=== PATIENT | male | born 1950 | race Caucasian/White ===

== ENCOUNTER → 2023-09-27 12:39 | Outpatient (REF) | payer MEDICARE, BC, SELFPAY ==
[2023-09-27 13:39] LABS: % Basophils 0.1 % (0-2); % Immature Granulocytes 0.6 % (0-0.5); % Lymphocytes 9.7 % (20.5-51.1); % Monocytes 0.9 % (1.7-9.3); % Neutrophils 88.7 % (42.2-75.2); Absolute Immature Granulocytes 0.1 10^3/uL (0-0.05); Absolute Lymphocytes 1.2 10^3/uL (1.2-3.4); Absolute Monocytes 0.1 10^3/uL (0.1-0.6); Hematocrit 38.1 % (39.0-52.0); Hemoglobin 13.3 g/dL (13.0-18.0); Mean Corp Hgb Conc. 34.9 g/dL (33.0-37.0); Mean Corpuscular Hgb 31.7 pg (27.0-31.0); Mean Corpuscular Volume 90.9 fL (80.0-94.0); Mean Platelet Volume 10.5 fL (7.4-10.4); Nucleated Red Blood Cells % 0 % (-); Platelet Count 246 10^3/uL (130-400); Red Blood Cell Count 4.19 10^6/uL (4.70-6.10); Red Cell Dist. Width 13.2 % (11.5-14.5); White Blood Cell Count 12.4 10^3/uL (4.8-10.8)
[2023-09-27 13:42] LABS: INR 1.53; PT 18.2 Sec (11.4-14.6)
[2023-09-27 13:53] LABS: ALT (SGPT) 16 U/L (0-50); AST (SGOT) 31 U/L (17-59); Albumin 4.4 g/dl (3.5-5.0); Alkaline Phosphatase 94 U/L (38-126); Blood Urea Nitrogen 15 mg/dl (9-20); Calcium 9.6 mg/dl (8.4-10.2); Carbon Dioxide 27 mmol/L (22-30); Chloride 102 mmol/L (98-107); Glucose 132 mg/dl (70-99); Magnesium 1.9 mg/dl (1.6-2.3); Potassium 4.4 mmol/L (3.5-5.1); Sodium 135 mmol/L (135-145); Total Bilirubin 0.7 mg/dl (0.2-1.3); Total Protein 7.6 g/dl (6.3-8.2); eGFR > 60.00
== END ==
LOC: SDSPAT 12:39
PROVIDERS: ATTENDING PHYSICIAN Internal Medicine Cardiovascular Disease; FAMILY PHYSICIAN Family Medicine; OTHER PHYSICIAN Internal Medicine Cardiovascular Disease
DX: Z01.818 Encounter for other preprocedural examination (principal); I48.91 Unspecified atrial fibrillation
CPT/HCPCS: 36415; 75572; 80053; 83735; 85025; 85610; 86850; 86900; 86901; 93005; Q9967

== ENCOUNTER → 2023-09-29 10:57 | Outpatient (REF) | payer MEDICARE, BC, SELFPAY | LOC: RAD 10:57 | PROVIDERS: ATTENDING PHYSICIAN Physician Assistant Medical; FAMILY PHYSICIAN Family Medicine; OTHER PHYSICIAN Internal Medicine Cardiovascular Disease | DX: Z01.818 Encounter for other preprocedural examination (principal); R09.89 Other specified symptoms and signs involving the circulatory and respiratory systems | CPT/HCPCS: 93880 ==

== ENCOUNTER 2023-10-12 05:54 | Day surgery (SDC) | payer MEDICARE, BC, SELFPAY ==
[2023-09-27 12:59] VITALS: BMI 24.6
[2023-10-12] VITALS (13 sets, daily range): BP systolic 123–164; BP diastolic 66–90
[2023-10-12 08:58] LABS: ACT-LR - POC 250 Seconds (116-155)
[2023-10-12 09:15] LABS: ACT-LR - POC 313 Seconds (116-155)
[2023-10-12 09:47] LABS: ACT-LR - POC 348 Seconds (116-155)
[2023-10-12 10:39] LABS: ACT-LR - POC 152 Seconds (116-155)
--- NOTE | 2023-10-12 11:09 | ITS.CL.ABL ---
Servicer - Ablation
Ablation
Procedure Report:
Primary Loading Unit Tool Setter: Lc Martin MD
Procedure Date: 10/12/2023
Patient History:
Patient is a pleasant 73-year-old male with a past medical history significant for hypertension, PAD, tobacco use disorder, moderate aortic insufficiency, depression, abdominal aortic aneurysm, and symptomatic persistent atrial fibrillation.
Indication:
Symptomatic persistent atrial fibrillation
Arrhythmia Specific History:
Prior Medical Therapies for Rate and Rhythm Control:
X Beta-risa
[ ] Calcium channel-risa
[ ] Amiodarone
[ ] Dronederone
[ ] Sotalol
[ ] Flecainide
[ ] Dofetilide
[ ] Options limited by bradycardia
[ ] Options limited by comorbid renal disease
Prior Procedural Therapies for AF/AFL:
X Cardioversion
[ ] Pulmonary Vein Isolation
[ ] Posterior Wall Isolation
[ ] Additional lines (Specify)
[ ] Surgical Colby-MAZE or PVI (Specify)
Procedure Performed:
X AF ablation procedure (35352) -- includes LA/CS pacing, trans-septal, 3D mapping, + ICE
[ ] +IV drug (55944)
[ ] +Other Arrhythmia (56197)
[ ] +Other AF Line/ablation (23764)
Risks and expected recovery has been explained in detail. Alternative options have been explored, and in a shared-decision making fashion we have decided that this was the most appropriate procedure.
Method
NPO status confirmed. Grounding pad applied. Defibrillator pads applied. Continuous surface ECG, pulse oximetry, and blood pressure were monitored. Procedure was performed under general anesthesia, with anesthesia services.
Both groins were clipped, prepped with Chloraprep, and draped in sterile fashion. Time out was called. Local anesthesia administered with bupivacaine. The right and left femoral veins were accessed for catheter placement, using ultrasound guidance,
micro-puncture needle/wire, and modified seldinger technique. 3 sheaths were placed. The following catheters were used:
[ ] Tacticath SE (D/F Curve) ablation catheter
X Viewflex 9Fr ICE catheter
X Inquiry decapolar 6Fr diagnostic catheter
[ ] CRD Hex 6Fr
X Arctic Front Advance Cryoballoon (28mm)
X Achieve Advance mapping catheter (15mm)
[ ] Acuson AcuNav 8 Fr ICE catheter
[ ]Other: [ ]
Intracardiac ultrasound (ICE) was carefully advanced into the right atrium to guide sheath placement over a J-wire, catheter placement, guide trans-septal puncture, identify potential complications, identify anatomic structures and ensure proper
contact between ablation catheter and tissue.
Heparin was given prior to trans-septal puncture. Heparin was given to achieve and maintain a target ACT of 300-400 seconds.
Trans-septal access was performed under ICE guidance. The trans-septal puncture was performed with a SafeSept wire through a Brockenbrough needle assembly. The wire was visualized as it entered the LSPV. The Brockenbrough needle assembly, SafeSept
wire and sheath dilator were removed under negative pressure. The Protrack pigtail wire was advanced through the sheath into the left atrium with position confirmed on ICE and fluoroscopy. The fixed curve long sheath was exchanged from the steerable
sheath over the Protrack wire and was advanced into the LA and positioned at the mitral annulus.
ICE and 3D mapping was performed to identify relevant cardiac structures. A careful 3D map was created to assess for regions of low-voltage and abnormal electrogram signals. Additional mapping was performed as outlined below. See synopsis for
details.
Cryoballoon ablation was performed using freeze/thaw/freeze at 2-4 minute intervals. Ablation targets included Cryoballoon temperatures of -30 degrees @ 30 seconds with goal temp typically between -40 and -50 degrees Celsius with time to effect when
measurable recorded to guide duration of application and need for repeat ablation in each vein. Esophageal temperature monitored throughout intervention. Phrenic nerve pacing performed during cryoapplication in the right pulmonary veins to monitor
for any evidence of PNI requiring application termination. See synopsis and procedure log for details.
Catheter and sheath were removed from the left atrium and post-ablation intracardiac echo evaluation was consistent with pre-ablation with no changes and no pericardial effusion and there is no left atrial thrombus or left ventricle thrombus seen.
Electrophysiology study was performed. Hemostasis was obtained with figure of 8 stitch for each groin with manual pressure. Protamine was used for reversal.
Estimated Blood Loss
5-10 mL
Complications
None
Procedure Synopsis:
The patient entered the room in AF. Three-dimensional mapping with EnSite system was performed with reconstruction of left atrium utilizing Achieve catheter. Intracardiac ultrasound and EnSite was used for guidance of ablation and placement of the
Cryoballoon. PV seal was confirmed with pressure waveform and ICE. Using the Achieve catheter, it was confirmed that pulmonary veins were active. All pulmonary veins were isolated successfully using Cryoballoon ablation using freeze/thaw/freeze
cycles at 2-4-minute intervals, with good pfmg-up-mswoye of isolation. During the right-sided PV ablation, phrenic nerve pacing was performed to assess the phrenic nerve strength and the phrenic nerve was intact throughout the right-sided ablation.
There was mild attenuation during right middle vein isolation which recovered quickly after discontinuation of ablation. Phrenic intact throughout procedure. SR restored with 200J synchronized cardioversion. Pre- and post-pulmonary vein recording
and pacing from the Achieve catheter was utilized to ensure complete pulmonary vein isolation. LA voltage map created at procedure conclusion confirming WACA of bilateral PVs.
Fluoroscopy: 10.3 minutes; 44.09 mGy; DAP 5.52
Contrast used: 0 cc
Baseline Intervals:
Rhythm: AF
QRS: 95 ms
QT: 242 ms
Post-Procedure Intervals:
NJ: 202 ms
QRS: 109 ms
QT: 403 ms
QTc: 396 ms
A-A: 1037 ms
R-R: 1037 ms
AVWB: 500 ms
AVERP: 600/460 ms
Recommendations
- Bedrest with straight-leg precautions as ordered
- Anticipate same day discharge if patient meeting clinical metrics
- Resume home medications as indicated
- Ok to resume anticoagulation tonight if patient and groin sites stable
- PPI daily for 30 days
- Plan for follow-up in office in 4-6 weeks
Alejandro Cui DO
Clinical Cardiac Machine Brush Maker
cc: Lc Martin MD; Lili Hendricks MD
[2023-10-12 14:54] LABS: ACT-LR - POC > 397 Seconds (116-155)
== END 2023-10-12 17:16 | disposition home or self-care (01) ==
LOC: CATH 05:54
PROVIDERS: ATTENDING PHYSICIAN Internal Medicine Cardiovascular Disease; FAMILY PHYSICIAN Family Medicine; OTHER PHYSICIAN Internal Medicine Cardiovascular Disease
DX: I48.19 Other persistent atrial fibrillation (principal); Z86.79 Personal history of other diseases of the circulatory system; Z87.891 Personal history of nicotine dependence; I10 Essential (primary) hypertension; I35.1 Nonrheumatic aortic (valve) insufficiency; I73.9 Peripheral vascular disease, unspecified; E78.5 Hyperlipidemia, unspecified; H40.9 Unspecified glaucoma; F32.A Depression, unspecified; F41.9 Anxiety disorder, unspecified; M54.10 Radiculopathy, site unspecified; J43.9 Emphysema, unspecified; Z79.899 Other long term (current) drug therapy; Z79.52 Long term (current) use of systemic steroids; Z91.041 Radiographic dye allergy status
CPT/HCPCS: C1766; C1894; C1730; C1893; C1733; 76937; 85347; 86900; 86901; 93005; 93656